=== PATIENT | male | born 1995 | race Caucasian/White ===

== ENCOUNTER → 2022-01-06 | Outpatient (CLI) | payer OTHER ==
[2022-01-06 18:15] LABS: Basophils # (A) 0.02 X 10*3/uL (0.00-0.10); Basophils % (A) 0.2 %; Eosinophils # (A) 0.01 X 10*3/uL (0.04-0.35); Eosinophils % (A) 0.1 %; HCT 43.6 % (39.6-50.0); Immature Grans, Automated 0.2 %; Lymphocytes # (A) 1.53 X 10*3/uL (0.90-5.00); Lymphocytes % (A) 18.4 %; MCH 32.6 pg (27.0-32.0); MCHC 34.4 g/dL (32.0-37.0); MCV 94.8 fL (80.0-97.0); Mean Platelet Volume 10.6 fL (9.5-12.2); Monocytes # (A) 0.67 X 10*3/uL (0.20-1.00); Monocytes % (A) 8.1 %; NRBC Per 100 WBC 0 /100 WBCS (0.0-0.0); Neutrophils # (A) 6.06 X 10*3/uL (1.80-7.70); Platelet Count 330 X 10*3/uL (140-440); RDW 12.8 % (11.5-14.5); WBC 8.31 X 10*3/uL (4.50-10.00)
[2022-01-06 19:06] LABS: Erythrocyte Sedimentation Rate 2 mm/Hr (0-15)
[2022-01-06 20:04] LABS: C Reactive Protein <0.30 mg/dL (0.00-0.80); Rheumatoid Factor, Qnt <10 IU/mL (0-15); Uric Acid 5.9 mg/dL (3.7-8.7)
== END | disposition home or self-care (01) ==
LOC: LABWHC1 12:21
PROVIDERS: ATTEND Orthopaedic Surgery
DX: M25.50 Pain in unspecified joint (principal)
CPT/HCPCS: 36415; 83036; 84550; 85025; 85652; 86038; 86140; 86225; 86431

== ENCOUNTER 2024-01-22 08:14 | Emergency (ER) | payer OTHER ==
[2024-01-22 08:31] VITALS: RESP 18
--- NOTE | 2024-01-22 09:01 | ED ---
General Adult HPI - General Chief complaint: Eye Problems Stated complaint: Right eye infection Time Seen by Provider: 01/22/24 08:34 Source: patient, RN notes reviewed, old records reviewed Mode of arrival: ambulatory Limitations: no limitations - History of Present Illness Initial comments: Is a 28-year-old male who presents emergency department complaining of right eye pain. Was working on a car yesterday. Does not think anything fell in his eye but last night began having some eye irritation and woke up with pustular drainage from the right eye. No difficulty with his vision. No pain with movement but pain at the surface of the eye. Concern for possible retained body. Denies any other obvious injuries. Denies fevers. Denies any trauma to the eye. Unknown last tetanus. Presents for further evaluation at this time. Does not wear contacts or glasses. - Related Data Previous Rx's Medication Instructions Recorded Ciprofloxacin Ophth Soln [Ciloxan 2 drops RIGHT EYE Q6HR 7 Days #5 ml 01/22/24 0.3% Ophth Soln] Allergies Allergy/AdvReac Type Severity Reaction Status Date / Time No Known Allergies Allergy Verified 01/22/24 08:31 Review of Systems ROS Statement: Those systems with pertinent positive or pertinent negative responses have been documented in the HPI. Review of Systems: CONST: Denies fever EYES: Endorses right eye pain ENT: Denies nasal congestion C/V: Denies Chest pain RESP: Denies shortness of breath GI: Denies abdominal pain : Denies dysuria SKIN: Denies rash. MSK: Denies joint pain. NEURO: Denies headache ROS Other: All systems not noted in ROS Statement are negative. Past Medical History Past Medical History: No Reported History Past Surgical History: No Surgical Hx Reported Past Psychological History: No Psychological Hx Reported Smoking Status: Never smoker Past Alcohol Use History: Occasional Past Drug Use History: None Reported General Exam - General Exam Comments Initial Comments: General: Appears in no acute distress. HEAD: Normal with no signs of head trauma. EYES: PERRLA, EOMI. Left eye exam unremarkable. Right eye exam reveals conjunctival injection. Some mild discharge present as well. Sensitivity to light. Pupils are 2 to 3 mm and equal bilaterally.Visual acuity found to be 20/20 in both eyes, left eye 20/20, right eye 20/30 ENT: Hearing grossly intact. No tenderness to palpation of the sinuses. No periorbital edema. RESPIRATORY: No respiratory distress C/V: Regular rate and rhythm ABD: Nondistended EXT: No obvious deformity SKIN: No rashes or lesions observed on exposed skin. NEURO: Alert and oriented x 4. Limitations: no limitations Course Vital Signs 01/22/24 01/22/24 08:27 10:38 Temperature 98.1 F 97.9 F Pulse Rate 65 72 Respiratory 18 18 Rate Blood Pressure 126/71 128/68 O2 Sat by Pulse 99 98 Oximetry Medical Decision Making - Medical Decision Making Was pt. sent in by a medical professional or institution (, [facility]EL, GLOBAL TECHNICAL WRITER, urgent care, hospital, or shelter...) When possible be specific @ -No Did you speak to anyone other than the patient for history (EMS, parent, family, police, friend...)? What history was obtained from this source @ -No Did you review nursing and triage notes (agree or disagree)? Why? @ -I reviewed and agree with nursing and triage notes Were old charts reviewed (outside hosp., previous admission, EMS record, old EKG, old radiological studies, urgent care reports/EKG's, shelter records)? Report findings @ -No old charts were reviewed Differential Diagnosis (chest pain, altered mental status, abdominal pain women, abdominal pain men, vaginal bleeding, weakness, fever, dyspnea, syncope, headache, dizziness, GI bleed, back pain, seizure, CVA, palpatations, mental health, musculoskeletal)? @ -Corneal abrasion, intraocular foreign body, ruptured globe, this list is not all inclusive. EKG interpreted by me (3pts min.). @ -None done X-rays interpreted by me (1pt min.). @ -None done CT interpreted by me (1pt min.). @ -None done U/S interpreted by me (1pt. min.). @ -None done What testing was considered but not performed or refused? (CT, X-rays, U/S, labs)? Why? @ -None What meds were considered but not given or refused? Why? @ -None Did you discuss the management of the patient with other professionals (professionals i.e. , MICHAEL, GLOBAL TECHNICAL WRITER, lab, RT, psych nurse, health care social worker, leather belt loop cutter, teacher, property and supply officer, case checker)? Give summary @ -No Was smoking cessation discussed for >3mins.? @ -No Was critical care preformed (if so, how long)? @ -No Were there social determinants of health that impacted care today? How? (Homelessness, low income, unemployed, alcoholism, drug addiction, transportation, low edu. Level, literacy, decrease access to med. care, custodial, rehab)? @ -No Was there de-escalation of care discussed even if they declined (Discuss DNR or withdrawal of care, Hospice)? DNR status @ -No What co-morbidities impacted this encounter? (DM, HTN, Smoking, COPD, CAD, Ca ncer, CVA, ARF, Chemo, Hep., AIDS, mental health diagnosis, sleep apnea, morbid obesity)? @ -None Was patient admitted / discharged? Hospital course, mention meds given and route, prescriptions, significant lab abnormalities, going to OR and other pertinent info. @ -Patient presents for right eye pain. No obvious trauma or exposures. Was working on a car and is wondering if something may have fallen into his eye at that point last night. Symptoms did not begin until the middle of the night. We will stain the eye with fluorescein as well as tetracaine drops and obtain visual acuity. Patient was in agreement this plan. Tetanus will be updated. Vital signs within acceptable limits. No evidence of globe rupture on exam. Slit-lamp exam revealed no obvious intraocular foreign bodies or rust rings. Fluorescein staining revealed a corneal abrasion at the 9 o'clock position on the right eye. Discussed the results with the patient. He will be given ciprofloxacin eyedrops. Patient was in agreement this plan. Tetanus was updated. He will be discharged home at this time. Recommended follow-up with ophthalmology this week and will be given contact information. Patient was in a greement this plan. I recommended he obtain artificial tears as well to keep the eye lubricated. I will provide the patient with a prescription for ciprofloxacin eyedrops. I instructed the patient to follow up with their PCP in the next 1-3 days. I provided contact information for follow up with ophthalmology. I explained that the patient should return to the emergency department if they experience any worsening symptoms. Strict return precautions were discussed with the patient. The patient expressed understanding of these instructions. I answered all questions that the patient had. The patient was discharged home in good condition with their prescriptions and follow up information. Undiagnosed new problem with uncertain prognosis? @ -No Drug Therapy requiring intensive monitoring for toxicity (Heparin, Nitro, Insulin, Cardizem)? @ -No Were any procedures done? @ -No Diagnosis/symptom? @ -Corneal abrasion Acute, or Chronic, or Acute on Chronic? @ -Acute Uncomplicated (without systemic symptoms) or Complicated (systemic symptoms)? @ -Uncomplicated Side effects of treatment? @ -None Exacerbation, Progression, or Severe Exacerbation] @ -No Poses a threat to life or bodily function? @ -No Disposition Clinical Impression: Corneal abrasion Disposition: HOME SELF-CARE Condition: Good Instructions (If sedation given, give patient instructions): Eye Lubricant (Into the eye), Corneal Abrasion (ED) Additional Instructions: obtain over the counter artificial tear drops and use 4-6 times per day. use antibiotic drops, 2 drops every 6 hours for at least 7 days. follow up with opthomology. Prescriptions: Ciprofloxacin Ophth Soln [Ciloxan 0.3% Ophth Soln] 2 drops RIGHT EYE Q6HR 7 Days #5 ml Is patient prescribed a controlled substance at d/c from ED?: No Referrals: None,Stated [Primary Care Provider] - 1-2 days Jacques Calzada MD [STAFF PHYSICIAN] - 1-2 days Time of Disposition: 09:55
[2024-01-22] MEDS: DIPH,PERTUS(ACELL)TETVAC-LF 0.5 ML VIAL IM ONE (09:05)
[2024-01-22] MEDS: TETRACAINE 0.5% OPHTH (PF) DROPS 4 ML BTL RIGHT EYE STA (09:05)
[2024-01-22] MEDS: FLUORESCEIN STRIPS 1 MG STRIP RIGHT EYE ONE (09:05)
[2024-01-22] MEDS: CIPROFLOXACIN 0.3% OPHTH SOLN 5 ML BTL RIGHT EYE STA (10:29)
[2024-01-22 10:40] VITALS: BP 128/68; PULSE 72; TEMP 97.9
== END 2024-01-22 10:38 | disposition home or self-care (01) ==
LOC: EC 08:14
CPT/HCPCS: 90471; 90715; 99283